=== PATIENT | female | born 1975 | race Caucasian/White ===

== ENCOUNTER 2023-12-26 13:59 | Emergency (ER) | payer OTHER, SELFPAY ==
[2023-12-26 14:00] VITALS: BP 155/100
[2023-12-26 14:17] LABS: % Basophils 0.5 % (0-2); % Eosinophils 0.8 % (0-6); % Immature Granulocytes 0.4 % (0-0.5); % Lymphocytes 13.6 % (20.5-51.1); % Monocytes 13.7 % (1.7-9.3); Absolute Basophils 0.1 10^3/uL (0-0.2); Absolute Eosinophils 0.1 10^3/uL (0-0.7); Absolute Lymphocytes 1.4 10^3/uL (1.2-3.4); Absolute Monocytes 1.4 10^3/uL (0.1-0.6); Absolute Neutrophils 7.5 10^3/uL (1.4-6.5); Hematocrit 36.7 % (37.0-47.0); Hemoglobin 13.4 g/dL (12.0-16.0); Mean Corp Hgb Conc. 36.5 g/dL (33.0-37.0); Mean Corpuscular Hgb 30.1 pg (27.0-31.0); Mean Corpuscular Volume 82.5 fL (81.0-99.0); Mean Platelet Volume 8.9 fL (7.4-10.4); Nucleated Red Blood Cells % 0 %; Platelet Count 322 10^3/uL (130-400); Red Blood Cell Count 4.45 10^6/uL (4.20-5.40); Red Cell Dist. Width 12.1 % (11.5-14.5); White Blood Cell Count 10.5 10^3/uL (4.8-10.8)
[2023-12-26 14:41] LABS: ALT (SGPT) 17 U/L (0-35); AST (SGOT) 25 U/L (14-36); Albumin 4.6 g/dl (3.5-5.0); Alkaline Phosphatase 67 U/L (38-126); Blood Urea Nitrogen 11 mg/dl (7-17); Calcium 9.5 mg/dl (8.4-10.2); Carbon Dioxide 32 mmol/L (22-30); Chloride 94 mmol/L (98-107); Glucose 99 mg/dl (70-99); Potassium 3.2 mmol/L (3.5-5.1); Sodium 135 mmol/L (135-145); Total Bilirubin 0.6 mg/dl (0.2-1.3); Total Protein 7.9 g/dl (6.3-8.2); eGFR > 60.00
[2023-12-26 14:53] VITALS: BP 136/92
[2023-12-26 15:00] VITALS: BP 133/88
[2023-12-26 15:11] LABS: Urine Albumin Negative (Neg - Trace); Urine Bilirubin Negative (Negative); Urine Character Clear (Clear); Urine Color Yellow; Urine Glucose Negative (Negative); Urine Ketone Negative (Negative); Urine Leukocyte Trace (Negative); Urine Nitrite Negative (Negative); Urine Occult Blood 4+ (Negative); Urine Urobilinogen Negative (Neg - 1+); Urine pH 6.5 (5.0-9.0)
--- NOTE | 2023-12-26 15:12 | ED.GENMED ---
History of Present Illness
General
Chief Complaint: Headache
Source: patient
Exam Limitations: none
Time Seen by Provider: 12/26/23 14:48
Nursing documentation reviewed up to this point in time: agreed with
History of Present Illness
History of Present Illness:
48-year-old female with history of migraines, HTN, HLD, GERD, 'mild' lupus presents for headache. She states 3 days ago after exercising she felt nauseous and had one of her typical migraines, took Maxalt and the headache was relieved. The next
day she still felt 'off' and took Maxalt and Compazine as her headache had returned. These helped and she slept well through the night. Yesterday she took her temperature was 99 8, she went to her health clinic and was diagnosed with a
questionable sinus infection, she had postnasal drip at that visit and was given a prescription for a Z-Abraham to hold onto, to start tomorrow if her symptoms persist as the doctor there thought this may be a viral illness.
Patient states her ears do feel 'full' so she started the Z-Abraham, had 500 mg yesterday to 50 mg today.
Last night she states she had a excruciating headache, took her Maxalt and the headache was gone within an hour. She has been told not to take her Maxalt more than 3 times a week so she is maxed out on that.
She tested negative for flu at the clinic yesterday and tested COVID-negative twice at home.
She denies CP, SOB, abdominal pain. She denies change in vision. No recent head injury. She denies any weakness or numbness in her extremities.
She has seasonal allergies but they have not been too bad she states. She does get allergy shots.
At this time the headache is in the right side of her head, 6/10, typical of her migraines, she does feel generally achy, she is flying to [place] in 2 days and states 'if we can just get on top of this headache, that usually helps.' She is
requesting our 'cocktail' for headaches as these have worked in the past
Past History
Past History
ED Past Medical History: GERD, HTN, Hypercholesterolemia and Other (Migraines, 'mild' lupus)
ED Past Surgical History: Other (Plastic surgery eyes)
Social History
Tobacco: Non-smoker
Alcohol: Occasional
Personal:
Living: with family
Employment: Employed (Speech therapist)
Review of Systems
Review of Systems
Allergies reviewed?: Yes
All Other Systems: ROS reviewed and negative except as documented in HPI and ROS
Constitutional: Reports fever and fatigue
EENT: Denies sore throat
Respiratory: Denies cough or trouble breathing
Cardiac: Denies chest pain
ABD/GI: Reports nausea; Denies abdominal pain, vomiting, diarrhea or constipated
: Denies dysuria, frequency, difficulty voiding or urgency
Musculoskeletal: Reports other (general achiness)
Skin: Reports no symptoms
Neurological: Reports headache; Denies dizzy, weakness or numbness
Phy Exam
Physical Exam
Physical Exam:
GENERAL: No acute distress. A&Ox3.
CONSTITUTIONAL: Afebrile. Temp 99.5 po
EYES: PERRL, conjunctivae normal
Neck: Supple
ENMT: moist mucus membranes, Pharynx nl, TMs normal
RESPIRATORY: Regular respirations, nonlabored, lungs clear.
CARDIOVASCULAR: Regular rate and rhythm, no murmurs, no rubs.
GI: Soft, nontender, normal BS
MUSCULOSKELETAL: Moves with ease. Well perfused.
SKIN: Warm, dry, pink
PSYCH: Normal mood and affect. Well kept, interactive and appropriate
NEUROLOGIC: Awake, alert and oriented. Speech clear, strength equal throughout. Cranial nerves II through XII intact. No focal neurological deficits. Ambulates well with steady gait.
Course
Orders/Labs/Results
Orders:
Orders
12/26/23 14:07
CMP [Comprehensive Metabolic Panel] Urgent
Complete Blood Count/With Diff Urgent
12/26/23 14:55
Test Result ONCE
12/26/23 14:56
Beta Hcg Urine Qualitative Screen [HCG, Urine Qualitative Screen] Urgent
Date Specimen was Collected: 12/26/23
Time Specimen was Collected: 14:55
Urinalysis Reflex To Culture Urgent
Date Specimen was Collected: 12/26/23
Time Specimen was Collected: 14:55
Urine Microscopic Reflex Cult Urgent
12/26/23 15:10
0.9% Sodium Chloride 1000 ml [Nss] 1,000 ml IV BOLUS
Diphenhydramine [Benadryl] 50 mg IV NOW STA
Ondansetron HCl [Zofran] 4 mg PO NOW STA
Prochlorperazine [Compazine] 10 mg IV NOW STA
12/26/23 17:24
Dexamethasone Sod Phosphate [Decadron] 10 mg IV NOW STA
12/26/23 17:25
Ketorolac [Toradol] 15 mg IV NOW STA
Abnormal Lab Results
12/26/23 12/26/23
14:07 14:56
Hct 36.7 L %
(37.0-47.0)
Absolute Neuts (auto) 7.5 H 10^3/uL
(1.4-6.5)
Absolute Monos (auto) 1.4 H 10^3/uL
(0.1-0.6)
Lymphocytes % 13.6 L %
(20.5-51.1)
Monocytes % 13.7 H %
(1.7-9.3)
Potassium 3.2 L mmol/L
(3.5-5.1)
Chloride 94 L mmol/L
(98-107)
Carbon Dioxide 32 H mmol/L
(22-30)
Ur Occult Blood Reflex 4+ A
(Negative)
Leukocyte Esterase Rfl Trace A
(Negative)
12/26/23 14:07
12/26/23 14:07
Vital Signs
Initial and Last Documented VS:
Initial Vital Signs
Temp Pulse Resp BP Pulse Ox
99.1 F 94 16 155/100 99
12/26/23 14:00 12/26/23 14:00 12/26/23 14:00 12/26/23 14:00 12/26/23 14:00
Last Documented Vital Signs
Temp Pulse Resp BP Pulse Ox
99.1 F 94 16 123/87 98
12/26/23 14:00 12/26/23 14:00 12/26/23 14:00 12/26/23 18:00 12/26/23 18:30
MDM/Problems Addressed
Differential Diagnosis Includes:
Migraine, sinus infection, seasonal allergies, ICH
MDM/Problems Addressed:
48-year-old female with history of migraines, HTN, HLD, GERD, 'mild' lupus presents for headache. She states 3 days ago after exercising she felt nauseous and had one of her typical migraines, took Maxalt and the headache was relieved. The next
day she still felt 'off' and took Maxalt and Compazine as her headache had returned. These helped and she slept well through the night. Yesterday she took her temperature was 99.8, she went to her health clinic and was diagnosed with a
questionable sinus infection, she had postnasal drip at that visit and was given a prescription for a Z-Abraham to hold onto, to start tomorrow if her symptoms persist as the doctor there thought this may be a viral illness.
Patient states her ears do feel 'full' so she started the Z-Abraham, had 500 mg yesterday to 50 mg today.
Last night she states she had a excruciating headache, took her Maxalt and the headache was gone within an hour. She has been told not to take her Maxalt more than 3 times a week so she is maxed out on that.
She tested negative for flu at the clinic yesterday and tested COVID-negative twice at home.
She denies CP, SOB, abdominal pain. She denies change in vision. No recent head injury. She denies any weakness or numbness in her extremities.
She has seasonal allergies but they have not been too bad she states. She does get allergy shots.
At this time the headache is in the right side of her head, 6/10, typical of her migraines, she does feel generally achy, she is flying to [place] in 2 days and states 'if we can just get on top of this headache, that usually helps.' She is
requesting our 'cocktail' for headaches as these have worked in the past
Temp 99.5 for this examiner, NAD
No focal neurological deficits. Ambulates well with steady gait. Do not suspect ICH. Pt states this is typical of her h/a's, head CT imaging not indicated.
5:30 PM
After IV fluids Compazine and Benadryl, Zofran, patient started to feel better but now awake and ambulating well states she just does not feel that much better.
IV Decadron and Toradol ordered
6:20 PM
Patient states she is feeling better, headache now 2/10, is requesting to go home. She thinks her sinuses are congested and she will take a decongestant when she gets home.
Patient ambulating with steady gait at discharge
She will start Prednisone tomorrow, she has enough at home for a Taper.
*Critical Care Note
Total Time (30-74mins, 75-104mins- exclusive of procedures): Not Applicable
ED Attending Note
-
Portions of this chart may have been created with voice recognition software.� Occasional wrong word or��sound alike� substitutions may have occurred due to the inherent limitations of voice recognition software.
Discharge Plan
Departure
Patient Disposition: Home (Routine Discharge)
Date of Disposition: 12/26/23
Time of Disposition: 18:18
Patient with high blood pressure during this ER visit?: No
Condition: Good
Discharge Problem:
Migraine
Instructions: Migraines (DC), Headache, Adult (DC)
Referrals:
Brodie Landis MD [Family Provider] - Follow up in 2-3 days
Activity Restrictions/Additional Instructions:
As we discussed, your lab work is normal.
Take your home Prednisone starting tomorrow as you were given a steroid here today. Take: Prednisone 40 mg x 2 days, 30 mg x 2 days, 20 mg x 2 days, 10 mg x 2 days.
Interventions
Interventions:
*Risk Screen - Suicide Last Done: 12/26/23 14:55
*General Assessment Last Done: 12/26/23 14:00
*Neglect/Abuse Screening Last Done: 12/26/23 14:55
ED- Fall Risk Assessment Last Done: 12/26/23 18:48
*ED COVID-19 Vaccine History Last Done: 12/26/23 14:00
*Nursing Disposition Last Done: 12/26/23 18:48
ED- Neurological Assessment Last Done: 12/26/23 14:53
Discharge Date and Time
Discharge Date/Time: 12/26/23 18:49
Print Language: FRENCH
[2023-12-26 15:19] LABS: HCG, Urine Qualitative Screen Negative
[2023-12-26] MEDS: ZOFRAN 4 MG PO ×2 (15:29)
[2023-12-26] MEDS: COMPAZINE 10 MG IV (15:29)
[2023-12-26] MEDS: BENADRYL 50 MG IV (15:29)
[2023-12-26] MEDS: NSS 1000 IV (15:29)
[2023-12-26 15:47] LABS: Urine Red Blood Cell 0-2 /HPF (0-2); Urine Squamous Cell 0-2 /LPF (Few)
[2023-12-26 16:00] VITALS: BP 119/77
[2023-12-26 17:23] VITALS: BP 127/93
[2023-12-26] MEDS: DECADRON 10 MG IV (17:32)
[2023-12-26] MEDS: TORADOL 15 MG IV (17:32)
[2023-12-26 18:00] VITALS: BP 123/87
== END 2023-12-26 18:49 | disposition home or self-care (01) ==
LOC: EMR 13:59
PROVIDERS: Emergency Medicine; EMERGENCY PHYSICIAN Emergency Medicine; FAMILY PHYSICIAN Internal Medicine
DX: G43.909 Migraine, unspecified, not intractable, without status migrainosus (principal); R09.81 Nasal congestion; R11.0 Nausea; R50.9 Fever, unspecified; I10 Essential (primary) hypertension; K21.9 Gastro-esophageal reflux disease without esophagitis; E78.00 Pure hypercholesterolemia, unspecified; M32.9 Systemic lupus erythematosus, unspecified; Z88.1 Allergy status to other antibiotic agents
CPT/HCPCS: 99284; 96374; 96375 ×3; 96361; 80053; 81003; 81015; 81025; 85025